=== PATIENT | male | born 1950 | race Caucasian/White ===

== ENCOUNTER 2016-08-02 14:53 | Inpatient (IN) | payer OTHER ==
[~2016-08-02] VITALS: Ht 177.8 cm; Wt 84.8 kg
--- NOTE | 2016-08-02 16:26 | ED GI/GU/ABDOMINAL COMPLAINT ---
See Addendum History of Present Illness General Chief Complaint: General Adult Stated Complaint: PT SIB DR FOR C DIFF Source: patient Exam Limitations: no limitations Vital Signs & Intake/Output Vital Signs & Intake/Output Vital Signs Date Time Temp Pulse Resp B/P B/P Pulse O2 O2 Flow FiO2 Mean Ox Delivery Rate 08/02 1504 99.6 80 16 123/72 97 Room Air Allergies Coded Allergies: No Known Allergies (08/02/16) Triage Note: 65 Y/O [facility]. PT STATES HE WAS THERE TO BE ADMITTED AND HE TOLD THEM HE HAS BEEN HAVING DIARRHEA EVERY DAY FOR 6 WEEKS SO THEY ARE CONCERNED HE MAY HAVE C.DIFF. PT STATES THEY ALSO TOLD HIM HIS SKIN LOOKS A LITTLE YELLOW. PT DENIES HISTORY OF SAME. SCLERA JAUNDICED. PT DENIES FEELING ANY WITHDRAWAL SYMPTOMS AT PRESENT. USED "COCAINE AND PILLS" YESTERDAY. STATES [facility] IS WILLING TO TAKE HIM BACK AFTER MEDICAL EVAL/CLEARANCE. Triage Nurses Notes Reviewed? yes HPI: This is a 65-year-old male with past medical history significant for diabetes, hypertension, hyperlipidemia, who was sent in by [facility] (sp?) a drug and alcohol rehabilitation program, for further evaluation of his diarrhea, particularly for c.diff. Upon further questioning, patient states that his diarrhea has been present for the past 5-6 weeks. He states that initially he had 3-4 loose, light-colored bowel movements a day. He then started taking 2 tabs of Imodium daily with a resulting decrease in the frequency of bowel movements down to 2/ day. Denies any melena, or bright red blood per rectum. Denies any pain upon defecation. Though he has been increasing his food intake, he notes at least 10 -15 lb weight loss. He denies any new medications added to his regimen, other than a tremporally distant increase in his diabetic medications which include glyburide and metformin. In addition, patient states he has noted an orange colored urine for the same duration as he has noted the light-colored diarrhea. He denies any hematuria, itching, burning, frequency or urgency. He denies abdominal pain, nausea or vomiting. He denies any fever or night sweats. He endorses worsening dry skin and pruritis. Patient has social history notable for significant drug and alcohol use. He is unwilling to quantify amount of alcohol consumption; however, he does tell me that he has been to outpatient and inpatient rehabilitation several times. He mentioned consumption of "pint or so" of hard liquor. His last drink was yesterday afternoon and it consisted of several beers. He also uses cocaine, last use 1.5g yesterday. He also intermittently uses Suboxone and Xanax. Denies any exposure to needles or IV drugs. (YURI JONES MD) Past History Travel History Traveled to [place] past 21 day No Medical History Any Pertinent Medical History? see below for history Neurological: NONE EENT: NONE Cardiovascular: NONE Respiratory: NONE Gastrointestinal: NONE Hepatic: NONE Renal: NONE Musculoskeletal: NONE Psychiatric: NONE Endocrine: diabetes Blood Disorders: NONE Cancer(s): NONE REPRINT SORTER/Reproductive: NONE Surgical History Surgical History: non-contributory Psychosocial History What is your primary language Frisian Tobacco Use: Current Daily Use Daily Tobacco Use Amount/Type: => 5 Cigarettes daily Illicit Drug Use: cocaine Family History Hx Contributory? No (YURI JONES MD) Psychosocial History ETOH Use: alcoholic (CORIN LYONS MD) Review of Systems Review of Systems Constitutional: Reports: malaise. Denies: chills, fever. EENTM: Denies: blurred vision, visual changes, ear pain, epistaxis, nasal pain, throat pain. Respiratory: Denies: cough, short of breath, sputum production. Cardiovascular: Denies: chest pain, palpitations. GI: Reports: diarrhea, distention, changes in stool. Denies: abdominal pain, constipation, bowel incontinence, melena, nausea, bloody stool, vomiting. Genitourinary: Reports: see HPI. Musculoskeletal: Denies: back pain, joint pain, muscle pain. Skin: Reports: dryness, jaundice. (YURI JONES MD) Review of Systems Neurological/Psychological: Reports: no symptoms. Hematologic/Endocrine: Reports: no symptoms. Immunologic/Allergic: Reports: no symptoms. All Other Systems: Reviewed and Negative (CORIN LYONS MD) Physical Exam Physical Exam General Appearance: no apparent distress, alert, awake Head: normal appearance Eyes: Bilateral: PERRL, EOMI, normal inspection, other (Jaundiced eyes). Ears, Nose, Throat, Mouth: hearing grossly normal Neck: normal inspection, supple, full range of motion Respiratory: normal breath sounds, chest non-tender, no respiratory distress, quiet respiration, lungs clear Cardiovascular: regular rate/rhythm Gastrointestinal: soft, non-tender, No rebound or guarding. Could no appreciate any hepatomegaly. No fluid wave appreciated. Core Measures ACS in differential dx? No Severe Sepsis Present: No Septic Shock Present: No (KAREN FERNANDEZ,YURI) Physical Exam Back: normal inspection, normal range of motion Extremities: normal range of motion Neurologic/Psych: no motor/sensory deficits, awake, alert, oriented x 3, normal mood/affect Skin: ICTERIC (SERENA FERNANDEZ,CORIN Steen) Progress Differential Diagnosis: biliary colic, cholecystitis, hepatitis, pancreatitis, cirrhosis, pancreatic cancer Plan of Care: Orders Procedure Date/time Status Admit to inpatient 08/02 1848 Active Add-on Test (ER Only) 08/02 1836 Active Add-on Test (ER Only) 08/02 1821 Active Add-on Test (ER Only) 08/02 1805 Active US-LIMITED ABDOMEN 08/02 1745 Active EKG 08/02 1718 Active CULTURE,URINE 08/02 1649 Active URINE DRUGS OF ABUSE 08/02 1649 Complete URINALYSIS 08/02 1649 Complete ACETOMINOPHEN 08/02 1646 Active PARTIAL THROMBOPLASTIN TIME 08/02 1646 Active PROTHROMBIN TIME 08/02 1646 Active HIV (Reflex to HIVCQ) 08/02 1646 Active HEPATITIS PANEL 08/02 1646 Active GAMMA GLUTAMYL TRANSFERASE 08/02 1646 Active ETHANOL 08/02 1646 Active CULTURE,STOOL 08/02 1553 Active C.DIFFICILE 08/02 1553 Active LIPASE 08/02 1553 Active DIRECT BILIRUBIN 08/02 1553 Active COMPREHENSIVE METABOLIC PANEL 08/02 1553 Active CBC WITHOUT DIFFERENTIAL 08/02 1553 Complete AMYLASE 08/02 1553 Active Current Medications Sig/Darby Start time Last Medication Dose Stop Time Status Admin Sodium Chloride 1,000 ML BOLUS ONE 08/02 1700 AC (Normal Saline 0.9%) 08/02 1859 Laboratory Tests 08/02/16 1806: Urine Opiates Screen < 100.00, Methadone Screen < 40, Barbiturate Screen < 60, Ur Phencyclidine Scrn < 6.00, Amphetamines Screen < 100, U Benzodiazepines Scrn < 85, Urine Cocaine Screen > 1000 H, Urine Cannabis Screen < 5.00, Urinalysis LIGHT H, Urine Color STRAW, Urine Clarity HAZY H, Urine pH 6.0, Ur Specific Parnell 1.020, Urine Protein TRACE H, Urine Ketones NEG, Urine Nitrite NEG, Urine Bilirubin NEG@ICTO, Urine Urobilinogen 0.2, Ur Leukocyte Esterase NEG, Ur Microscopic SEDIMENT EXAMINED, Urine WBC RARE, Ur Epithelial Cells FEW, Urine Hemoglobin NEG, Urine Glucose >=1000 H 08/02/16 1736: Hepatitis A IgM Ab Cancelled, Hep Bs Antigen Cancelled, Hep B Core IgM Ab Conf Cancelled, Hepatitis C Antibody Cancelled 08/02/16 1709: APTT Cancelled 08/02/16 1705: HIV 1&2 Ab Western Blot Cancelled 08/02/16 1656: Serum Alcohol Cancelled 08/02/16 1650: Ammonia Cancelled 08/02/16 1646: Anion Gap 10, Estimated GFR > 60, BUN/Creatinine Ratio 32.2 H, Glucose 302 H, Calcium 9.3, Total Bilirubin 9.8 H, Direct Bilirubin 8.3 H, GGT Pending, AST 306 H, ALT 531 H, Alkaline Phosphatase 1058 H, Total Protein 6.6, Albumin 3.9 , Globulin 2.7, Albumin/Globulin Ratio 1.4, Amylase 78, Lipase 260, PT Pending, INR Pending, APTT Pending, CBC w Diff NO MAN DIFF REQ, RBC 3.72 L, MCV 87.9, MCH 30.1, RDW 16.1 H, MPV 11.1 H, PUBS MCHC 34.2, Hepatitis A IgM Ab Pending, Hep Bs Antigen Pending, Hep B Core IgM Ab Conf Pending, Hepatitis C Antibody Pending, HIV 1&2 Ab Western Blot Pending, Acetaminophen < 10.0 L, Serum Alcohol < 10.0 Microbiology 08/02 1809 STOOL: Clostridium difficile Toxin A & B - RECD 08/02 1809 STOOL: Stool Culture - RECD 08/02 1805 URINE ROUT: Urine Culture - RECD Comments: 5:30: Patient noted to have significant lab abnormalities including T bili of 9.8 and a D bili of 8.3. Alkaline phosphatase of 1058. 6:00 PM- spoke with Dr. Kimball regarding recommendations for patient. He stated that this physician for further workup of patient depended on the ultrasound and the coags. If patient was coagulopathic or obstructed then immediate intervention would likely be necessary. Currenlty pending coags and US. Recieved call from lab that they required lab add ons. Cancelled labs and changed them to add on. (YURI JONES MD) Initial ED EKG: NSR, nonspecific ST T wave chg Prior EKG: unchanged (SERENA FERNANDEZ,CORIN Steen) Departure Departure Disposition: STILL A PATIENT Condition: Stable Referrals: JONAS FERNANDEZ,KENNEY Michel (PCP/Family) Departure Forms: Customer Survey General Discharge Information (YURI JONES MD) Departure Clinical Impression Primary Impression: Liver failure Secondary Impressions: Hyperbilirubinemia, Jaundice Admission Note Spoke With: ROZ COOPER MD Documentation of Exam: Documentation of any treatments & extenuating circumstances including Concerns Regarding Discharge (functional status, medication knowledge or non-compliance, living conditions, etc.) that warrant an admission rather than observation: [ Admission with GI consultation. Follow-up on C-DIFF results. Once patient is medically clear he would like to be transferred [facility] . Resident Co-Sign Statement Statement: ED Attending supervision documentation- [X] I saw and evaluated the patient. I have also reviewed all the pertinent lab results and diagnostic results. I agree with the findings and the plan of care as documented in the Resident's documentation. [X] I have reviewed the ED Record and agree with the Resident's documentation. [] Additions or exceptions (if any) to the Resident's note and plan are summarized below: [I have personally seen and examined this patient. However the above note and agree with what has been written. Patient went to a rehabilitation facility for treatment for alcohol and drug dependency. All their they noticed that he was having diarrhea and he had icteric skin. Patient was sent to the hospital for evaluation. Patient states that he has been having diarrhea for the past 6 weeks and it gets better when he takes Imodium. Patient denies any abdominal pain. There is no foul over to the school. Patient states he has not taken antibiotics within the past 5 months. Patient also states that he noticed that his urine began to turn orange a few weeks ago. Patient has very elevated LFTs and hyperbilirubinemia. Patient will require admission for GI consultation. Once he is medically stable he will go back to the rehabilitation facility.] (SERENA FERNANDEZ,CORIN Steen)
[2016-08-02 17:13] LABS: HEMATOCRIT 32.7 % (42-52); MEAN CORPUSCULAR HGB 30.1 PG (27.0-31.0); MEAN CORPUSCULAR HGB CONC 34.2 G/DL (33.0-37.0); MEAN CORPUSCULAR VOLUME 87.9 FL (80.0-94.0); MEAN PLATELET VOLUME 11.1 FL (7.4-10.4); PLATELET COUNT 219 /CUMM (130-400); RBC DISTRIBUTION WIDTH 16.1 % (11.5-14.5); RED BLOOD CELL CT 3.72 /CUMM (4.70-6.10); WHITE BLOOD CELL COUNT 5.4 /CUMM (4.8-10.8)
[2016-08-02 18:29] LABS: PT 10.4 SEC (9.4-12.5); PTT 51 SEC (25-37)
--- NOTE | 2016-08-02 19:41 | History & Physical ---
CASANDRAYAOJITENDRA 08/02/161940: General Information and HPI MD Statement: I have seen and personally examined JOSEPH JOYA and documented this H&P. The patient is a 65 year old M who presented with a patient stated chief complaint of [diarrhea]. Source of Information: patient, old records Exam Limitations: no limitations History of Present Illness: This is a 65-year-old male with past medical history significant for diabetes, hypertension, hyperlipidemia, who was sent in by [facility], a drug and alcohol rehabilitation program, for further evaluation of his diarrhea and jaundice. Patient highlights recent Hx of 5-6 weeks of loose and frequent nima-colored, bowel movements per day. Additionally, he notes noted an orange colored urine for the same duration as he has noted diarrhea.Patient also complains of intense generalized pruritis and worsening of his skin dryness at the time. patient also had 10-15 lb unintentional weight loss, tenesm and feeling of incomplete emptying of his bowel and skin ulce/lesions. In further Q patient mentioned decreased in his sex drive and performance but denies any concerning growing of his breast. He denies any new medications added to his regimen, melena, or bright red blood per rectum, tremor,and hit/cold intolerance, hair loss, hematuria, itching, burning, frequency or urgency. He denies abdominal pain, nausea or vomiting. He denies any fever or night sweats, and lymphadenopathy. Patient has social history notable for significant drug and alcohol use for so many years. He was admitted to rehab for alcohol numerous times and had one hospital admission related to alcohol/ drugs in the distant past (no ICU admission). His last drink was yesterday (one bear), but on average he drinkd 1/ 2 pint of vodka. Patient snort coccaine regularly (last time was two days ago), he never smoked coccaine, or used any IV drugs. Allergies/Medications Allergies: Coded Allergies: No Known Allergies (08/02/16) Home Med list Alprazolam 0.5 MG TABLET 1 TAB PO BIDP PRN ANXIETY (Reported) Glimepiride 1 MG TABLET 1 TAB PO BID DIABETES (Reported) Lisinopril 10 MG TABLET 1 TAB PO DAILY HIGH BLOOD PRESSURE (Reported) Metformin HCl 1,000 MG TABLET 1 TAB PO BID DIABETES (Reported) Simvastatin (Simvastatin*) 40 MG TABLET 1 TAB PO QPM HIGH CHOLESTROL ( Reported) Compliance With Home Meds: GOOD Past History Travel History Traveled to [place] past 21 day No Medical History Neurological: NONE EENT: NONE Cardiovascular: hypertension Respiratory: NONE Gastrointestinal: NONE Hepatic: NONE Renal: NONE Musculoskeletal: NONE Psychiatric: NONE Endocrine: diabetes Blood Disorders: NONE Cancer(s): NONE 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 Ambulation: independent IADLs Independent: shopping, housework, finances, food prep, telephone, transportation , medication admin. Review of Systems Review of Systems Constitutional: Reports: see HPI. EENTM: Reports: see HPI. Cardiovascular: Reports: see HPI. Respiratory: Reports: see HPI. GI: Reports: see HPI, diarrhea, changes in stool. Denies: abdominal pain, bloating, constipation, distention, bowel incontinence, melena, nausea, bloody stool, vomiting, steatorrhea. Genitourinary: Reports: no symptoms. Musculoskeletal: Reports: no symptoms. Skin: Reports: no symptoms. Neurological/Psychological: Reports: see HPI. Denies: anxiety, ataxia, cognitive dysfunction, confusion, depressed, dementia, emotional problems, headache, numbness, paresthesia, pre- existing deficit, petit mal seizures, tingling, tremors, tonic-clonic seizures, unable to move lower ext, unable to move upper ext, weakness, other. Exam & Diagnostic Data Last 24 Hrs of Vital Signs/I&O Vital Signs Date Time Temp Pulse Resp B/P B/P Pulse O2 O2 Flow FiO2 Mean Ox Delivery Rate 08/024 96 Room Air 08/02 1955 98.0 71 18 107/60 96 Room Air 08/02 1504 99.6 80 16 123/72 97 Room Air Intake & Output 08/02 1600 08/02 0800 08/02 0000 Intake Total Output Total Balance Patient 187 lb Weight Weight Reported by Patient Measurement Method Physical Exam General Appearance Alert, Oriented X3, Cooperative, No Acute Distress Skin jaundice; trunk and pulms and face Skin Temp/Moisture Exam: Warm/Dry Sepsis Skin Exam (color): Jaundiced HEENT PERRLA, Mucous Membr. moist/pink, Sclrea: jaundice Neck No JVD Lymphatic Axillary nl, Cervical nl Cardiovascular Normal S1, Normal S2, No Murmurs Lungs Clear to Auscultation Abdomen Soft, No Tenderness, No Hepatospenomegaly, obese, soft, no hepatosplenomegaly , no spider angioma, retractible abdominal hernia Neurological Normal Speech, Strength at 5/5 X4 Ext, Normal Tone, no astrixis Extremities No Clubbing, No Cyanosis, No Edema, Normal Pulses, No Tenderness/ Swelling, jaundice Vascular Normal Pulses, Pulses Symmetrical Reproductive (MALE) Normal male genitalia Last 24 Hrs of Labs/Medardo: Laboratory Tests 08/02/16 1806: Urine Opiates Screen < 100.00, Methadone Screen < 40, Barbiturate Screen < 60, Ur Phencyclidine Scrn < 6.00, Amphetamines Screen < 100, U Benzodiazepines Scrn < 85, Urine Cocaine Screen > 1000 H, Urine Cannabis Screen < 5.00, Urinalysis LIGHT H, Urine Color STRAW, Urine Clarity HAZY H, Urine pH 6.0, Ur Specific [place] 1.020, Urine Protein TRACE H, Urine Ketones NEG, Urine Nitrite NEG, Urine Bilirubin NEG@ICTO, Urine Urobilinogen 0.2, Ur Leukocyte Esterase NEG, Ur Microscopic SEDIMENT EXAMINED, Urine WBC RARE, Ur Epithelial Cells FEW, Urine Hemoglobin NEG, Urine Glucose >=1000 H 08/02/16 1736: Hepatitis A IgM Ab Cancelled, Hep Bs Antigen Cancelled, Hep B Core IgM Ab Conf Cancelled, Hepatitis C Antibody Cancelled 08/02/16 1709: APTT Cancelled 08/02/16 1705: HIV 1&2 Ab Western Blot Cancelled 08/02/16 1656: Serum Alcohol Cancelled 08/02/16 1650: Ammonia Cancelled 08/02/16 1646: Anion Gap 10, Estimated GFR > 60, BUN/Creatinine Ratio 32.2 H, Glucose 302 H, Calcium 9.3, Total Bilirubin 9.8 H, Direct Bilirubin 8.3 H, GGT 3560 H, AST 306 H, ALT 531 H, Alkaline Phosphatase 1058 H, Total Protein 6.6, Albumin 3.9 , Globulin 2.7, Albumin/Globulin Ratio 1.4, Amylase 78, Lipase 260, PT 10.4, INR 0.99, APTT 51 H, CBC w Diff NO MAN DIFF REQ, RBC 3.72 L, MCV 87.9, MCH 30.1, RDW 16.1 H, MPV 11.1 H, PUBS MCHC 34.2, Hepatitis A IgM Ab Pending, Hep Bs Antigen Pending, Hep B Core IgM Ab Conf Pending, Hepatitis C Antibody Pending, HIV 1&2 Ab Western Blot NONREACTIVE, Acetaminophen < 10.0 L, Serum Alcohol < 10.0 Microbiology 08/02 1809 STOOL: Clostridium difficile Toxin A & B - RECD 08/02 1809 STOOL: Stool Culture - RECD 08/02 1805 URINE ROUT: Urine Culture - RECD Diagnostic Data EKG Results Normal sinus rate and rhythm, 80 beats per minutes, normal axis, normal intervals, poor R-wave progression in precordial leads Assessment/Plan Assessment: 65-year-old gentleman was admitted for jaundice with a cholestatic pattern. CBC: WBC 5.4, platelets 219 hemoglobin 11.2, hematocrit 32.7, MCV 87.9 PT 10.4, INR 0.99, PTT 51, sodium 135, potassium 4.6, BUN 29, creatinine 0.9, glucose 302, total bilirubin 9.8 direct bilirubin 8.3 GGT 3560, AST 306 ALT 531m alkaline phosphatase 1058, normal amylase and lipase. Urine toxicology positive for cocaine. Abdominal ultrasound showed normal liver size and contour and echogenicity, no focal lesions or intrahepatic biliary duct dilation. Gallbladder is distended of overweight layering sludge no gallbladder wall thickening or tenderness during scanning no discrete gallstone. No evidence of acute cholecystitis no biliary ductal dilation. List of active problems #1 jaundice with cholestatic pattern elevated alkaline phosphatase and LFT. The list of differential diagnosis autoimmune hepatitis (type I and type II) chronic viral hepatitis. This patient has abnormal LFTs and prominence elevation of alkaline phosphatase in addition to GGT(pointed towards biliary system). He has a constellation of symptoms of jaundice, fatigue and weight loss and loose bowel movements. In the setting is prudent to include primary sclerosing cholangitis, and primary biliary cirrhosis (consider his loose bowel movement and weight loss which may indiacte fat mal absorption) in the list of differential diagnosis. Another DDx fo this patient pancreatic cancer. * Admit to general medical floor * NPO over night * GI consult * Check hepatic panel * Check total IgG and IgG4 and IgM, check KWASI, anti-smooth muscle antibody (ASMA ), anti-liver kidney microsomal-1 Abx (anti-LKM-1) for autoimmune hepatitis * Endoscopic retrograde cholangiopancreatography or cholangiographically to rule out PSC and PBC. * thyroid function pannel * anti-Ro/SSA and/or anti-La/SSB antibodies to R/O Sjogren * Repeat BEP and CBCs and lipid profile in the a.m., and lipid panel #2 diabetes * Stop metformin and glimepiride * Insulin aspart sliding scale and fingerstick 3 times a day before meals * Diabetes diets #3 hypertension continue home medication #4 alcohol dependence * Started patient on thiamine, multivitamin, folic acid * ativan 1 mg Q8h * By mouth Ativan triggered by CIWA score * Psych and social consult in the a.m. #5 cocaine abuse-use Ativan for agitation patient is currently stable DVT prophylaxis heparin 5000 units every 8 hours subcutaneous Low-dose morphine every 4 for mild/moderate pain High-dose morphine for severe pain Use Tylenol 650 mg for mild pain up to 1000 mg in 24h As Ranked By This Provider Problem List: 1. Hyperbilirubinemia 2. Jaundice Core Measures/Miscellaneous Acute Coronary Syndrome ACS Diagnosis: No Cerebrovascular Accident CVA/TIA Diagnosis: No Congestive Heart Failure CHF Diagnosis: No Venous Thromboembolism VTE Risk Factors: Acute medical illness No [facility] VTE prophylaxis d/t: No contraindications No VTE Pharm Prophylaxis d/t: No contraindications VTE Diagnosis: No VTE Type: NONE VTE Confirmed by (Test): NONE Severe Sepsis Severe Sepsis Present: No Septic Shock Septic Shock Present: No Miscellaneous Documentation Attending Case Discussed With: ROZ COOPER MD Primary Care Physician: KENNEY MCDANIEL MD 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 Level of Patient Care: Telemetry Consults Needed: Consulting Specialty: Cardiology Resident Review Statement Resident Statement: examined this patient, discussed with international marketing intern, agreed with international marketing intern, discussed with family, reviewed EMR data (avail), discussed with nursing , discussed with case mgmt, reviewed images, amended to note ROZ COOPER 08/03/16 0308: Attending Review Statement Attending Statement Attending MD Statement: examined this patient, discuss w/resident/PA/EMBEDDED HARDWARE ENGINEER, agreed w/resident/PA/EMBEDDED HARDWARE ENGINEER, discussed with family, reviewed EMR data (avail), reviewed images, amended to note Attending Assessment/Plan: CC: Sent from rehabilitation for medical clearance PMH: DM, HTN, HLD, polysubstance abuse Patient went inpatient rehabilitation for alcohol and cocaine abuse and detox. While evaluating for admission patient was noted to have diarrhea since 6 weeks, it was considered that he may have GI infection so he was sent to ER for further evaluation. Also they mentioned about patient being a little yellow. Patient mentions that he has been having diarrhea since 6 weeks, 5-6 semisolid bowel movement every day, difficult to flush, ? mucoid, no aggravating factors. It improved with OTC Imodium, since last 2 weeks patient has been consistently taking Imodium and his bowel movements are reduced to 2-3 every day. Patient denies any associated abdominal pain or cramping, no recent travels, no sick contacts, no antibiotic use, no vomiting or nausea. Previously patient had some history of constipation for which he used apple cider vinegar. Denies any history of recurrent abdominal pain or pancreatitis, denies any blood in the stool. Patient appears obviously icteric, but does not mention since how long that is going on in fact unaware of that symptom. Family mentions the urine is dark today upon sample collection but patient does not complain about it. No fever, chills, night sweats. He lost remarkable weight since March. Patient drinks a pint or so [place], every day along with a couple of beers, does not exactly quantify. He snorts cocaine, and denied IV drug use. Recently he went to check for hepatitis after looking at some advertisement regarding his age group should be checked for hep C. Does not follow-up with the primary care physician regularly. Vitals: Afebrile, pulse, RRR, blood pressure, O2 saturation in acceptable range. On exam: A O 3, cooperative, no acute distress, indifferent affect, icteric, neck supple, JVD normal, no lymphadenopathy, mucosa dry, no focal neurological deficit, no asterixis, no dependent edema, no spider angiomata or inflammation, yellowing of skin CVS: S1-S2, RRR. RS: Clear to auscultate bilaterally. Abdomen: Soft, NT, ND, bowel sounds present., Negative Low's sign, negative CVA tenderness. Labs: WBC 5.4, hemoglobin 11.2, platelets 219, BUN 29, creatinine 0.9, sodium 135, anion gap 10, glucose 302, total bilirubin 9.8, direct bilirubin 8.3, AST 306, ALT 531, alkaline phosphatase 1058, GGT 3560, albumin 3.9, lipase 260, INR 0.99 U tox negative for acetaminophen, positive for cocaine, negative for alcohol UA positive for trace protein glucose more than 1000 USG abdomen: The gallbladder is distended with layering bile. No evidence of acute cholecystitis. No biliary ductal dilatation. A and P Patient presents with chronic diarrhea more than 6 weeks duration, symptomatically improved with Imodium from 5-6 to 2-3 per day, difficult to flush stools, significant weight loss. Along with this patient has significant hyperbilirubinemia, mostly direct with elevated AST ALT. Even though patient has significant alcohol history his ALT is more than AST. Alkaline phosphatase and GGT markedly elevated. Albumin, platelet, INR, MCV in normal range. This all points towards biliary pathology plus or minus pancreatic insufficiency versus malabsorption. Patient does not have any acute abdominal pain, Low's sign is negative, no fever or leukocytosis ruling out cholangitis or cholecystitis ultrasound confirms the findings but still choledocholithiasis is a possibility, also need to rule out any underlying masses, structural abnormality, other connective tissue disorders. Patient would benefit from MRCP. + Chronic diarrhea + Cholestatic jaundice + Transaminitis + Elevated alkaline phosphatase + Significant polysubstance abuse: alcohol and cocaine + History of hypertension, DM, HLD - Admit to general medicine - Nothing by mouth after midnight - Follow-up C. difficile, HIV, hepatitis panel tests - Repeat CBC, CMP, INR, TSH in a.m. - GI consult in a.m. - Sliding scale insulin for diabetes - Continue home doses of lisinopril and statin - Scheduled and when necessary Ativan according to CIWA score - Replace folic acid, thiamine - Gentle hydration - Psych consult in a.m. - Repeat EKG and troponin in a.m. - DVT prophylaxis with heparin - Adequate pain control
--- NOTE | 2016-08-02 19:58 | ULTRASOUND REPORT ---
EXAMINATION: US ABDOMEN LIMITED CLINICAL INFORMATION: Jaundice. COMPARISON: None TECHNIQUE: Real-time imaging of the right upper quadrant abdominal viscera. FINDINGS: PANCREAS: Visualization of the pancreas is obscured by bowel gas. LIVER: Normal. The liver demonstrates normal size, contour and echogenicity. No focal lesion or intrahepatic biliary duct dilatation. GALLBLADDER: The gallbladder is distended and filled with layering sludge. No gallbladder wall thickening or tenderness during scanning. No discrete gallstone. COMMON BILE DUCT: Normal in caliber measuring 0.5 cm in diameter. RIGHT KIDNEY: Normal. No hydronephrosis. No renal calculi or focal parenchymal lesions. The kidney measures 10.8 cm in maximum dimension. FREE FLUID: None. IMPRESSION: The gallbladder is distended with layering bile. No evidence of acute cholecystitis. No biliary ductal dilatation. Visualization of the pancreas is obscured by bowel gas.
[2016-08-02] MEDS ORDERED: LISINOPRIL10 M1 PO (21:34)
[2016-08-02] MEDS ORDERED: SIMVASTATIN40 M1 PO (21:34)
[2016-08-02] MEDS ORDERED: METFORMIN HCL1000 M1 PO (21:34)
[2016-08-02] MEDS ORDERED: GLIMEPIRIDE1 M1 PO (21:35)
[2016-08-02] MEDS ORDERED: ALPRAZOLAM0.5 M4 PO (21:36)
[2016-08-02] MEDS ORDERED: SUBOXONE 2 MG-1 EACH SL (21:38)
[2016-08-02 22:44] VITALS: BP 138/102
--- NOTE | 2016-08-03 03:10 | Admission Certification ---
Admission Certification Certification Statement - As attending physician, I certify that at the time of - admission, based on clinical presentation, severity of - symptoms, need for further diagnostic testing and - therapeutic interventions, and risk of adverse outcomes - without in-hospital treatment, in my clinical assessment, - this patient requires an acute hospital stay for a minimum - of two nights or longer. I have also considered psychsocial - factors such as support system, advanced age, financial - issues, cognitive issues, and failed out-patient treatments, - past re-admission history, safety of patient, and lack of - compliance as applicable. Specific rationale supporting this admission is: Diarrhea, cholestatic jaundice
--- NOTE | 2016-08-03 07:05 | PN- Housestaff ---
HAILEE FERNANDEZ,THOMAS 08/03/16 0704: Subjective Follow-up For: hyperbilirubinemia Subjective: When initially seen today, pt was lethargic, and was falling asleep while I was talking to him, he did just received ativan. Ativan scheduled was discontinued as his ciwa was 0, and last drink was sunday (1 beer) When we saw him about 2 hours later, he was alert and awake. I called GI to see him, he is still NPO pending decision to do ERCP. Psych and SW have been consulted as well. WE will obtain CT abd and pelvis to rule out mass given weight loss, anemia. We will obtain colonoscopy report from 2014. 130 PM - ammonia level 55, c diff positive. will start metronidazole 500 q8. Review of Systems Constitutional: Reports: see HPI. Objective Last 24 Hrs of Vital Signs/I&O Vital Signs Date Time Temp Pulse Resp B/P B/P Pulse O2 O2 Flow FiO2 Mean Ox Delivery Rate 08/03 0926 119/62 08/03 0731 98.2 71 18 140/66 97 Room Air 08/02 2244 98.0 74 18 138/102 95 Room Air 08/02 2207 97.9 70 16 126/63 98 Room Air 08/02 2124 96 Room Air 08/02 1955 98.0 71 18 107/60 96 Room Air 08/02 1504 99.6 80 16 123/72 97 Room Air Intake & Output 08/03 1600 08/03 0800 08/03 0000 Intake Total 1300 1125 Output Total Balance 1300 1125 Intake, IV 1000 1125 Intake, Oral 300 Patient 84.822 kg Weight Physical Exam General Appearance: Alert, Oriented X3, Cooperative, No Acute Distress Skin: jaundiced Cardiovascular: Regular Rate, Normal S1, Normal S2, No Murmurs Lungs: Clear to Auscultation, Normal Air Movement Abdomen: Normal Bowel Sounds, Soft, No Tenderness Neurological: Normal Speech Extremities: No Edema Current Medications: Current Medications Sig/Darby Start time Last Medication Dose Route Stop Time Status Admin Acetaminophen 650 MG Q4P PRN 08/02 2245 CAN PO Acetaminophen 650 MG Q6P PRN 08/02 2245 AC PO Atorvastatin Calcium 20 MG 1700 08/03 1700 CAN PO Folic Acid 1 MG DAILY 08/03 1000 AC 08/03 PO 08/05 1001 0925 Heparin Sodium 5,000 UNIT Q8 08/03 1400 AC (Porcine) SC Insulin Aspart 0 TIDAC 08/03 0800 DC SC Insulin Human Regular 0 Q6 08/03 0830 AC 08/03 SC 1255 Lisinopril 10 MG DAILY 08/03 1000 AC 08/03 PO 0926 Lorazepam 1 MG Q2P PRN 08/02 2345 AC IV Lorazepam 1 MG Q8 08/02 2336 DC 08/03 PO 0546 Metronidazole 500 MG Q8 08/03 1400 AC PO Morphine Sulfate 2 MG Q4P PRN 08/02 2245 AC IV Multivitamins 1 TAB DAILY 08/03 1000 AC 08/03 PO 0925 Oxycodone HCl 5 MG Q6P PRN 08/02 2245 AC PO Sodium Chloride 1,000 ML Q8H 08/03 0500 AC 08/03 IV 0546 Sodium Chloride 1,000 ML .Q8H 08/02 2045 DC 08/02 IV 2100 Sodium Chloride 1,000 ML BOLUS ONE 08/02 1700 DC 08/02 IV 08/02 1859 1830 Thiamine HCl 100 MG DAILY 08/03 1000 AC 08/03 PO 08/05 1001 0925 Last 24 Hrs of Lab/Medardo Results Last 24 Hrs of Labs/Mics: Laboratory Tests 08/03/16 1145: Ammonia 55 H 08/03/16 0640: Anion Gap 9, Estimated GFR > 60, BUN/Creatinine Ratio 23.8, Iron 132, Total Bilirubin 8.9 H, Direct Bilirubin 7.4 H, AST 361 H, ALT 518 H, Alkaline Phosphatase 1056 H, Troponin I < 0.01, Total Protein 5.8 L, Albumin 3.3 L, Vitamin B12 > 1000 H, Folate 15.2, CBC w Diff MAN DIFF ORDERED, RBC 3.58 L, MCV 88.6, MCH 30.1, RDW 15.7 H, MPV 11.7 H, Segmented Neutrophils 76 H, Lymphocytes 12 L, Monocytes 7, Eosinophils 5, Nucleated RBCs 1 H, Hypochromic- Microcytic 2+, Anisocytosis 2+, PUBS MCHC 34.0 08/03/16 0600: ANCA Pending 08/02/16 1806: Urine Opiates Screen < 100.00, Methadone Screen < 40, Barbiturate Screen < 60, Ur Phencyclidine Scrn < 6.00, Amphetamines Screen < 100, U Benzodiazepines Scrn < 85, Urine Cocaine Screen > 1000 H, Urine Cannabis Screen < 5.00, Urinalysis LIGHT H, Urine Color STRAW, Urine Clarity HAZY H, Urine pH 6.0, Ur Specific Cornelius 1.020, Urine Protein TRACE H, Urine Ketones NEG, Urine Nitrite NEG, Urine Bilirubin NEG@ICTO, Urine Urobilinogen 0.2, Ur Leukocyte Esterase NEG, Ur Microscopic SEDIMENT EXAMINED, Urine WBC RARE, Ur Epithelial Cells FEW, Urine Hemoglobin NEG, Urine Glucose >=1000 H 08/02/16 1736: Hepatitis A IgM Ab Cancelled, Hep Bs Antigen Cancelled, Hep B Core IgM Ab Conf Cancelled, Hepatitis C Antibody Cancelled 08/02/16 1709: APTT Cancelled 08/02/16 1705: HIV 1&2 Ab Western Blot Cancelled 08/02/16 1656: Serum Alcohol Cancelled 08/02/16 1650: Ammonia Cancelled 08/02/16 1646: Anion Gap 10, Estimated GFR > 60, BUN/Creatinine Ratio 32.2 H, Glucose 302 H, Calcium 9.3, Total Bilirubin 9.8 H, Direct Bilirubin 8.3 H, GGT 3560 H, AST 306 H, ALT 531 H, Alkaline Phosphatase 1058 H, Total Protein 6.6, Albumin 3.9 , Globulin 2.7, Albumin/Globulin Ratio 1.4, Amylase 78, Lipase 260, TSH 1.040, PT 10.4, INR 0.99, APTT 51 H, CBC w Diff NO MAN DIFF REQ, RBC 3.72 L, MCV 87.9 , MCH 30.1, RDW 16.1 H, MPV 11.1 H, PUBS MCHC 34.2, Hepatitis A IgM Ab NONREACTIVE, Hep Bs Antigen NONREACTIVE, Hep B Core IgM Ab Conf NONREACTIVE, Hepatitis C Antibody NONREACTIVE, HIV 1&2 Ab Western Blot NONREACTIVE, Acetaminophen < 10.0 L, Serum Alcohol < 10.0 08/02/16 1553: KWASI Titer ND, Anti-Nuclear Antibody NEG 1:40 IFA ASSAY Microbiology 08/03 1020 STOOL: Clostridium difficile Toxin A & B - COMP CLOSTRIDIUM DIFFICILE 08/02 1809 STOOL: Clostridium difficile Toxin A & B - RES CLOSTRIDIUM DIFFICILE 08/02 1809 STOOL: Stool Culture - RES 08/02 1805 URINE ROUT: Urine Culture - RES Assessment/Plan Assessment: 65-year-old male with past medical history significant for diabetes, hypertension, hyperlipidemia, alcohol and cocain abuse, who was sent in by [facility], a drug and alcohol rehabilitation program, for further evaluation of his diarrhea (found to be c diff), tenesmus, jaundice (t bili 9.8, direct bili 8.3), nima colored stool, orange colored urine, weight loss (10 lbs in 5 months) , anemia with elevated RDW. # C diff diarrhea * Metronidazole 500 mg q8 started 08/03/16 # Obstructive jaundice, alcoholic hepatitis - On admission AST 306, ALT 531, alk phos 1058, GGT 3560 - T bili 9.8, direct bili 8.3 - Negative hepatitis panel, HIV, KWASI - serum tylenol < 10 - Serum alcohol < 10 - INR 0.99 - Ammonia 55 * Follow up ANCA * GI consulted for possible ERCP, pt NPO, on 75ml/hr NS * Follow up CT abdomen and pelvis to r/o mass * Requesting recs from colonoscopy 2014 * Hold statin # Alcohol abuse, cocaine abuse - urine cocaine > 1000 * Discharge to [facility] when medically stable * Appreciate psych and SW input * Consider propanolol for cocaine withdrawal if agitated * MV, thiamine, folic acid * Ativan PRN IV # Normocytic anemia with elevated RDW - H/H: 11.2/32.7 - Vit B 12 > 1000, folate 15.2,iron 132 - RDW 16.1H # Hypertension * Continue lisinopril # DM * Accucheck and NPO novolin, would change to novolog tidac when eating Diet: NPO, if able to eat, would order CC3 DVT prophylaxis heparin 5000 units every 8 hours subcutaneous Low-dose morphine every 4 for mild/moderate pain High-dose morphine for severe pain Use Tylenol 650 mg for mild pain up to 1000 mg in 24h FULL CODE Problem List: 1. Hyperbilirubinemia Pain Ratin Pain Location: none Pain Goal: Remain pain free Pain Plan: mild pp Tomorrow's Labs & Rationales: lft direct bili for hyperbilirubinemia cbc for anemia bep for electrolyte repletion if needed DVT/Prophylaxis: mechanical, pharmacological Consulting Request: Consulting Specialty: Cardiology GERALDO HART 08/03/16 1111: Attending MD Review Statement Attending Statement Attending MD Statement: examined this patient, discuss w/resident/PA/GAMBLING DEALER, agreed w/resident/PA/GAMBLING DEALER, discussed with family, reviewed EMR data (avail), discussed with nursing, discussed with case mgmt, reviewed images, amended to note Attending Assessment/Plan: ASSESSMENT 1. Iron defeciency anemia 2. Diarrhea and weight loss 3. Jaundice with elevated ggt and alphos 4. alcohol abuse 5. distended gall bladder with layering of bile. 6. Elevated LFTs. PLAN obtain CT abd/pelvis and GI consult. diarrhea improving add questran. low prob of c diff. alcohol rehab as o/p and discharge gi/dvt prophyalxis full code plan of care d/wed patient and family
[2016-08-03 07:31] VITALS: BP 140/66
[2016-08-03 08:31] LABS: HEMATOCRIT 31.7 % (42-52); MEAN CORPUSCULAR HGB 30.1 PG (27.0-31.0); MEAN CORPUSCULAR VOLUME 88.6 FL (80.0-94.0); MEAN PLATELET VOLUME 11.7 FL (7.4-10.4); PLATELET COUNT 181 /CUMM (130-400); RBC DISTRIBUTION WIDTH 15.7 % (11.5-14.5); RED BLOOD CELL CT 3.58 /CUMM (4.70-6.10); WHITE BLOOD CELL COUNT 4.5 /CUMM (4.8-10.8)
--- NOTE | 2016-08-03 08:55 | Incdntl Nt Psy ---
Incidental Note Notation: Consult requested for alcohol and cocaine use. Ordered by Dr. Jiang & Dr. Capps Attending Dr. Honeycutt Assessment/Plan Assessment: Discuss case with resident. This patient has no psychiatric complaints and is currently awaiting return to [facility] medical clearance. Endorses recent cocaine and ETOH use. Plan: 1. Continue CIWA protocol and medicate appropriately. 2. Consider propranolol for symptoms of cocaine withdrawal. 3. Consider social work consult for this substance abuse patient. 4. Please reconsult psychiatry if there are any acute mental health concerns. Thank you we are signing off.
--- NOTE | 2016-08-03 14:42 | Cons- Gastroenterology ---
General Information and HPI Consulting Request Date of Consult: 08/03/16 Requested By: GERALDO HART MD Reason for Consult: Increased LFTs, jaundice, cholestasis Source of Information: patient Exam Limitations: no limitations History of Present Illness: Mr. Bajwa is a 65 year old male with a history of polypsubtance abuse who was sent to yesterday for evaluation of jaundice and diarrhea by a [facility]. The patient has been having diarrhea for the past 4-5 weeks. The patient reports that for the past 4-5 weeks he has been having loose stool which is light in color, but he hasn't noticed any blood. He also reports having dark urine during this time and he has noted some mild pruritus as well. He has been without any abdominal pain with eating, or signficant vomiting. He has not noticed himself to be yellow in the eyes, but notes that he was told he was jaundiced at the rehab facility. He has not had any high temperature spikes. He was last on abx this past winter, but he hasn't been on anything else since this time. He also has not had any recent foreign travel or have any sick contacts. He has admitted to heavy alcohol use drinking about a half a pint of vodka a day and he is also been using cocaine. On admission he was afebrile and hemodynamiclly stable, but he was noted to have increased LFTs with a bilirubin of around 9 and an alk phos around a 1000. He was kept NPO and he had stool studies sent that came back positive for c diff and flagyl has been ordered but he hasn't gotten it yet. Allergies/Medications Allergies: Coded Allergies: No Known Allergies (08/02/16) Home Med List: Alprazolam 0.5 MG TABLET 1 TAB PO BIDP PRN ANXIETY (Reported) Glimepiride 1 MG TABLET 1 TAB PO BID DIABETES (Reported) Lactobac Cmb #3/Fos/Pantethine (Probiotic & Acidophilus Cap) 300MM-250 CAPSULE 1 CAP PO BID PRN on antibiotics Lisinopril 10 MG TABLET 1 TAB PO DAILY HIGH BLOOD PRESSURE (Reported) Metformin HCl 1,000 MG TABLET 1 TAB PO BID DIABETES (Reported) Metronidazole (Flagyl) 250 MG TABLET 500 MG PO Q8 c diff diarrhea please take until 5/28/17 Simvastatin (Simvastatin*) 40 MG TABLET 1 TAB PO QPM HIGH CHOLESTROL ( Reported) Current Medications: Current Medications Sig/Darby Start time Last Medication Dose Route Stop Time Status Admin Acetaminophen 650 MG Q4P PRN 08/02 2245 CAN PO Acetaminophen 650 MG Q6P PRN 08/02 2245 AC PO Atorvastatin Calcium 20 MG 1700 08/03 1700 CAN PO Folic Acid 1 MG DAILY 08/03 1000 AC 08/03 PO 08/05 1001 0925 Heparin Sodium 5,000 UNIT Q8 08/03 1400 AC (Porcine) SC Insulin Aspart 0 TIDAC 08/03 0800 DC SC Insulin Human Regular 0 Q6 08/03 0830 AC 08/03 SC 1255 Lisinopril 10 MG DAILY 08/03 1000 AC 08/03 PO 0926 Lorazepam 1 MG Q2P PRN 08/02 2345 AC IV Lorazepam 1 MG Q8 08/02 2336 DC 08/03 PO 0546 Metronidazole 500 MG Q8 08/03 1400 AC PO Morphine Sulfate 2 MG Q4P PRN 08/02 2245 AC IV Multivitamins 1 TAB DAILY 08/03 1000 AC 08/03 PO 0925 Oxycodone HCl 5 MG Q6P PRN 08/02 2245 AC PO Sodium Chloride 1,000 ML Q8H 08/03 1445 UNVr IV Sodium Chloride 1,000 ML Q8H 08/03 0500 DC 08/03 IV 08/03 2059 0546 Sodium Chloride 1,000 ML .Q8H 08/02 2045 DC 08/02 IV 2100 Sodium Chloride 1,000 ML BOLUS ONE 08/02 1700 DC 08/02 IV 08/02 1859 1830 Thiamine HCl 100 MG DAILY 08/03 1000 AC 08/03 PO 08/05 1001 0925 Past History Travel History Traveled to [place] past 21 day No Medical History Neurological: NONE EENT: NONE Cardiovascular: hypertension Respiratory: NONE Gastrointestinal: NONE Hepatic: NONE Renal: NONE Musculoskeletal: NONE Psychiatric: NONE Endocrine: diabetes Blood Disorders: NONE Cancer(s): NONE ESTATE MANAGER/Reproductive: NONE Surgical History Surgical History: non-contributory Family History Relations & Conditions If Any: Relation not specified for: *No pertinent family history Psychosocial History Where Do You Live? Home Smoking Status: Never Smoked ETOH Use: alcoholic Illicit Drug Use: cocaine Functional Ability ADLs Independent: dressing, eating, toileting, bathing. Ambulation: independent IADLs Independent: shopping, housework, finances, food prep, telephone, transportation , medication admin. Review of Systems Review of Systems Constitutional: Reports: malaise. Denies: chills, diaphoresis, fever. EENTM: Denies: no symptoms. Cardiovascular: Denies: no symptoms. Respiratory: Denies: no symptoms. GI: Reports: see HPI. Genitourinary: Denies: no symptoms. Musculoskeletal: Denies: no symptoms. Skin: Denies: no symptoms. Neurological/Psychological: Denies: no symptoms. Hematologic/Endocrine: Denies: no symptoms. Immunologic/Allergic: Denies: no symptoms. All Other Systems: Reviewed and Negative Exam & Diagnostic Data Vital Signs and I&O Vital Signs Date Time Temp Pulse Resp B/P B/P Pulse O2 O2 Flow FiO2 Mean Ox Delivery Rate 08/03 0926 119/62 08/03 0731 98.2 71 18 140/66 97 Room Air 08/02 2244 98.0 74 18 138/102 95 Room Air 08/02 2207 97.9 70 16 126/63 98 Room Air 08/02 2124 96 Room Air 08/02 1955 98.0 71 18 107/60 96 Room Air Intake & Output 08/03 1600 08/03 0400 08/02 1600 08/02 0400 08/01 1600 08/01 0400 Intake Total 1300 1125 Output Total Balance 1300 1125 Intake, IV 1000 1125 Intake, Oral 300 Patient 187 lb 187 lb Weight Weight Reported by Patient Measurement Method Physical Exam General Appearance: well developed/nourished, no apparent distress, alert, comfortable Head: atraumatic, normal appearance Eyes: Bilateral: normal appearance. Ears, Nose, Throat: normal pharynx, normal ENT inspection Neck: normal inspection, supple, full range of motion Respiratory: normal breath sounds, chest non-tender Cardiovascular: regular rate/rhythm Gastrointestinal: normal bowel sounds, soft, non-tender Rectal: deferred Back: normal inspection, normal range of motion Extremities: normal inspection, normal capillary refill Neurologic/Psych: no motor/sensory deficits, awake, alert, oriented x 3 Results Pertinent Lab Results: Laboratory Tests 08/03 08/03 08/03 1145 0640 0600 Chemistry Sodium (137 - 145 mmol/L) 139 Potassium (3.5 - 5.1 mmol/L) 4.0 Chloride (98 - 107 mmol/L) 107 Carbon Dioxide (22 - 30 mmol/L) 23 Anion Gap (5 - 16) 9 BUN (9 - 20 mg/dL) 19 Creatinine (0.7 - 1.2 mg/dL) 0.8 Estimated GFR (>60 ml/min) > 60 BUN/Creatinine Ratio (7 - 25 %) 23.8 Iron (49 - 181 ug/dL) 132 TIBC (261 - 462 ug/dL) 274 Ferritin (17.9 - 464 ng/mL) 145.0 Total Bilirubin (0.2 - 1.3 mg/dL) 8.9 H Direct Bilirubin (< 0.4 mg/dL) 7.4 H AST (17 - 59 U/L) 361 H ALT (21 - 72 U/L) 518 H Alkaline Phosphatase (< 127 U/L) 1056 H Ammonia (9 - 30 umol/L) 55 H Troponin I (<0.11 ng/ml) < 0.01 Total Protein (6.3 - 8.2 g/dL) 5.8 L Albumin (3.5 - 5.0 g/dL) 3.3 L Vitamin B12 (239 - 931 pg/mL) > 1000 H Folate (2.76 - 20.0 ng/mL) 15.2 Hematology CBC w Diff MAN DIFF ORDERED WBC (4.8 - 10.8 /CUMM) 4.5 L RBC (4.70 - 6.10 /CUMM) 3.58 L Hgb (14.0 - 18.0 G/DL) 10.8 L Hct (42 - 52 %) 31.7 L MCV (80.0 - 94.0 FL) 88.6 MCH (27.0 - 31.0 PG) 30.1 RDW (11.5 - 14.5 %) 15.7 H Plt Count (130 - 400 /CUMM) 181 MPV (7.4 - 10.4 FL) 11.7 H Segmented Neutrophils (42.2 - 75.2 %) 76 H Lymphocytes (20.5 - 51.1 %) 12 L Monocytes (1.7 - 9.3 %) 7 Eosinophils (0 - 5.0 %) 5 Nucleated RBCs (0.0 - 0.0 /100WBC) 1 H Hypochromic-Microcytic 2+ Anisocytosis 2+ PUBS MCHC (33.0 - 37.0 G/DL) 34.0 Immunology ANCA Pending 08/02 08/02 0476 1736 Serology Hepatitis A IgM Ab Cancelled Hep Bs Antigen Cancelled Hep B Core IgM Ab Conf Cancelled Hepatitis C Antibody Cancelled Toxicology Urine Opiates Screen (>2000 NG/ML) < 100.00 Methadone Screen (>300 NG/ML) < 40 Barbiturate Screen (>200 NG/ML) < 60 Ur Phencyclidine Scrn (>25 NG/ML) < 6.00 Amphetamines Screen (>1000 NG/ML) < 100 U Benzodiazepines Scrn (>200 NG/ML) < 85 Urine Cocaine Screen (>300 NG/ML) > 1000 H Urine Cannabis Screen (>50 NG/ML) < 5.00 Urines Urinalysis LIGHT H Urine Color (YEL,AMB,STR) STRAW Urine Clarity (CLEAR) HAZY H Urine pH (5.0 - 8.0) 6.0 Ur Specific Staley (1.001 - 1.035) 1.020 Urine Protein (NEG,<30 MG/DL) TRACE H Urine Ketones (NEG) NEG Urine Nitrite (NEG) NEG Urine Bilirubin (NEG) NEG@ICTO Urine Urobilinogen (0.1 - 1.0 EU/dl) 0.2 Ur Leukocyte Esterase (NEG) NEG Ur Microscopic SEDIMENT EXAMINED Urine WBC (0 - 2 /HPF) RARE Ur Epithelial Cells (NONE,FEW) FEW Urine Hemoglobin (NEG) NEG Urine Glucose (N MG/DL) >=1000 H 08/02 08/02 08/02 08/02 1709 1705 1656 1650 Chemistry Ammonia Cancelled Coagulation APTT Cancelled Serology HIV 1&2 Ab Western Blot Cancelled Toxicology Serum Alcohol Cancelled 08/02 08/02 1646 1553 Chemistry Sodium (137 - 145 mmol/L) 135 L Potassium (3.5 - 5.1 mmol/L) 4.6 Chloride (98 - 107 mmol/L) 102 Carbon Dioxide (22 - 30 mmol/L) 23 Anion Gap (5 - 16) 10 BUN (9 - 20 mg/dL) 29 H Creatinine (0.7 - 1.2 mg/dL) 0.9 Estimated GFR (>60 ml/min) > 60 BUN/Creatinine Ratio (7 - 25 %) 32.2 H Glucose (65 - 99 mg/dL) 302 H Calcium (8.4 - 10.2 mg/dL) 9.3 Total Bilirubin (0.2 - 1.3 mg/dL) 9.8 H Direct Bilirubin (< 0.4 mg/dL) 8.3 H GGT (15 - 73 U/L) 3560 H AST (17 - 59 U/L) 306 H ALT (21 - 72 U/L) 531 H Alkaline Phosphatase (< 127 U/L) 1058 H Total Protein (6.3 - 8.2 g/dL) 6.6 Albumin (3.5 - 5.0 g/dL) 3.9 Globulin (1.9 - 4.2 gm/dL) 2.7 Albumin/Globulin Ratio (1.1 - 2.2 %) 1.4 Amylase (30 - 110 U/L) 78 Lipase (23 - 300 U/L) 260 TSH (0.270 - 4.200 uIU/mL) 1.040 Coagulation PT (9.4 - 12.5 SEC) 10.4 INR (0.90 - 1.17) 0.99 APTT (25 - 37 SEC) 51 H Hematology CBC w Diff NO MAN DIFF REQ WBC (4.8 - 10.8 /CUMM) 5.4 RBC (4.70 - 6.10 /CUMM) 3.72 L Hgb (14.0 - 18.0 G/DL) 11.2 L Hct (42 - 52 %) 32.7 L MCV (80.0 - 94.0 FL) 87.9 MCH (27.0 - 31.0 PG) 30.1 RDW (11.5 - 14.5 %) 16.1 H Plt Count (130 - 400 /CUMM) 219 MPV (7.4 - 10.4 FL) 11.1 H PUBS MCHC (33.0 - 37.0 G/DL) 34.2 Immunology KWASI Titer ND Anti-Nuclear Antibody (NEG,1:40) NEG 1:40 IFA ASSAY Serology Hepatitis A IgM Ab (NONREACTIVE) NONREACTIVE Hep Bs Antigen (NONREACTIVE) NONREACTIVE Hep B Core IgM Ab Conf (NONREACTIVE) NONREACTIVE Hepatitis C Antibody (NONREACTIVE) NONREACTIVE HIV 1&2 Ab Western Blot (NONREACTIVE) NONREACTIVE Toxicology Acetaminophen (10.0 - 30.0 ug/mL) < 10.0 L Serum Alcohol (<10 MG/DL) < 10.0 Imaging/Other Studies: EXAM TYPE: US - US-LIMITED ABDOMEN EXAMINATION: US ABDOMEN LIMITED CLINICAL INFORMATION: Jaundice. COMPARISON: None TECHNIQUE: Real-time imaging of the right upper quadrant abdominal viscera. FINDINGS: PANCREAS: Visualization of the pancreas is obscured by bowel gas. LIVER: Normal. The liver demonstrates normal size, contour and echogenicity. No focal lesion or intrahepatic biliary duct dilatation. GALLBLADDER: The gallbladder is distended and filled with layering sludge. No gallbladder wall thickening or tenderness during scanning. No discrete gallstone. COMMON BILE DUCT: Normal in caliber measuring 0.5 cm in diameter. RIGHT KIDNEY: Normal. No hydronephrosis. No renal calculi or focal parenchymal lesions. The kidney measures 10.8 cm in maximum dimension. FREE FLUID: None. IMPRESSION: The gallbladder is distended with layering bile. No evidence of acute cholecystitis. No biliary ductal dilatation. Visualization of the pancreas is obscured by bowel gas. EXAM TYPE: CAT - CT ABD & PELVIS W IV CONTRAST EXAMINATION: CT ABDOMEN AND PELVIS WITH CONTRAST CLINICAL INFORMATION: Obstructive jaundice. Colon cancer versus pancreatic cancer COMPARISON: Abdominal ultrasound dated 08/02/2016 TECHNIQUE: Multidetector volumetric imaging was performed of the abdomen and pelvis before and after the IV administration of 98 mL of Optiray 320 intravenous contrast. Sagittal and coronal reformatted images were obtained on the technologist's workstation. DLP: 825.86 mGy-cm FINDINGS: LUNG BASES: The visualized lung bases are unremarkable. LIVER, GALLBLADDER, AND BILIARY TREE: Tiny punctate calcifications superior right hepatic lobe (series 6 image 8 compatible with prior granulomatous disease. Subtle enhancing foci also noted in the superior segment 7/8 right hepatic lobe (series 6 image 1, image 11) measuring approximately 0.4 cm each. Mildly distended gallbladder with tiny gallstone in the dependent portion. (Series 5 image 24) Intrahepatic biliary ductal dilatation. Common hepatic duct is dilated. Bile duct is difficult to assess at the level of the pancreatic head. PANCREAS: Fullness of the pancreatic head with subtle low-attenuation. Evaluation of the pancreas on the early contrast enhancement is very limited due to beam hardening and motion degradation. There is subtle low-attenuation suspected in the region of the pancreatic head (series 2 image 25). No gross pancreatic ductal dilatation.. SPLEEN: Unremarkable. Soft tissue nodule noted posterior to the upper pole of the left kidney may represent a small lymph node or splenule (series 5 image 14) ADRENAL GLANDS: Unremarkable. KIDNEYS AND URETERS: No gross abnormality on the delayed contrast-enhanced CT scanner. Earlier contrast enhanced images are degraded. BLADDER: Unremarkable. GASTROINTESTINAL TRACT: Colonic diverticulosis. No evidence of acute diverticulitis. No acute bowel pathology. ABDOMINAL WALL: Tiny fat-containing umbilical hernia. LYMPH NODES: Small epigastric lymph nodes. No gross lymphadenopathy. VASCULAR: Atherosclerotic disease with intimal calcification of aorta and aortic branches. Vascular calcification splenic artery. PELVIC VISCERA: Prostatic enlargement. Prostate measures 5.4 cm in transverse diameter. Prostatic calcifications. OSSEOUS STRUCTURES: There is grade 1 anterolisthesis L5-S1 bilateral L5 pars interarticularis defect likely representing a chronic change. Moderate facet arthropathy L4-L5 and L5-S1 levels. IMPRESSION: 1. There is fullness of the pancreatic head with subtle internal low-attenuation. Early contrast enhanced images are degraded by motion artifacts limiting their evaluation. Given the presence of biliary ductal dilatation, further assessment with endoscopic ultrasound or contrast-enhanced pancreatic MRI recommended. 2. Tiny enhancing hepatic foci superior right hepatic lobe. These too can be further assessed with dynamic contrast-enhanced MRI. Calcified granulomas noted in the liver. 3. Mildly distended gallbladder with tiny gallstone. Intrahepatic and proximal biliary ductal dilatation. 4. Colonic diverticulosis. No evidence of acute diverticulitis. Evaluation of the bowel wall is limited due to incomplete distention. No gross abnormal wall thickness. Assessment/Plan Assessment/Recommendations: Assessment: Mr. Bajwa is a 65-year-old male with a history of cocaine and alcohol abuse who was admitted with painless jaundice which appears to be secondary to an obstruction at the level of the pancreatic head which is obviously concerning for an underlying pancreatic malignancy. He is without any right upper quadrant pain and he is afebrile so biliary decompression is not urgent. He should have further imaging with an MRI and he will likely ultimately require an EUS for staging and to determine resectability and an ERCP for biliary decompression, but all of this can likely be done as an outpatient. His diarrhea appears to be secondary to c diff and unrelated to his jaundice and this will hopefully improve with oral flagyl. Recommendations: 1. Follow daily LFTs 2. Follow up MRCP/MRI with pancreatic mass protocol 3. Notify GI for signs of cholangitis (ie. RUQ pain, fevers, hypotension etc). 4. Treat c diff with PO flagyl to complete a 10 day course 5. Can treat pruritus with prn questran, but this should be given separate from the flagyl so that it doesn't interfere with absorption. 6. If he remins without signs of cholangitis consideration should be given to discharge him home on oral flagyl to pursue an EUS +/- ERCP vs surgical resection as an outpatient. I will continue to follow this patient and make further recommendations based on his clinical course and results of further imaging and repeat blood work. Copies To: JONAS FERNANDEZ,KENNEY Michel Consult Acknowledgment - Thank you for your consult request.
--- NOTE | 2016-08-03 14:59 | CT SCAN REPORT ---
EXAMINATION: CT ABDOMEN AND PELVIS WITH CONTRAST CLINICAL INFORMATION: Obstructive jaundice. Colon cancer versus pancreatic cancer COMPARISON: Abdominal ultrasound dated 08/02/2016 TECHNIQUE: Multidetector volumetric imaging was performed of the abdomen and pelvis before and after the IV administration of 98 mL of Optiray 320 intravenous contrast. Sagittal and coronal reformatted images were obtained on the technologist's workstation. DLP: 825.86 mGy-cm FINDINGS: LUNG BASES: The visualized lung bases are unremarkable. LIVER, GALLBLADDER, AND BILIARY TREE: Tiny punctate calcifications superior right hepatic lobe (series 6 image 8 compatible with prior granulomatous disease. Subtle enhancing foci also noted in the superior segment 7/8 right hepatic lobe (series 6 image 1, image 11) measuring approximately 0.4 cm each. Mildly distended gallbladder with tiny gallstone in the dependent portion. (Series 5 image 24) Intrahepatic biliary ductal dilatation. Common hepatic duct is dilated. Bile duct is difficult to assess at the level of the pancreatic head. PANCREAS: Fullness of the pancreatic head with subtle low-attenuation. Evaluation of the pancreas on the early contrast enhancement is very limited due to beam hardening and motion degradation. There is subtle low-attenuation suspected in the region of the pancreatic head (series 2 image 25). No gross pancreatic ductal dilatation.. SPLEEN: Unremarkable. Soft tissue nodule noted posterior to the upper pole of the left kidney may represent a small lymph node or splenule (series 5 image 14) ADRENAL GLANDS: Unremarkable. KIDNEYS AND URETERS: No gross abnormality on the delayed contrast-enhanced CT scanner. Earlier contrast enhanced images are degraded. BLADDER: Unremarkable. GASTROINTESTINAL TRACT: Colonic diverticulosis. No evidence of acute diverticulitis. No acute bowel pathology. ABDOMINAL WALL: Tiny fat-containing umbilical hernia. LYMPH NODES: Small epigastric lymph nodes. No gross lymphadenopathy. VASCULAR: Atherosclerotic disease with intimal calcification of aorta and aortic branches. Vascular calcification splenic artery. PELVIC VISCERA: Prostatic enlargement. Prostate measures 5.4 cm in transverse diameter. Prostatic calcifications. OSSEOUS STRUCTURES: There is grade 1 anterolisthesis L5-S1 bilateral L5 pars interarticularis defect likely representing a chronic change. Moderate facet arthropathy L4-L5 and L5-S1 levels. IMPRESSION: 1. There is fullness of the pancreatic head with subtle internal low-attenuation. Early contrast enhanced images are degraded by motion artifacts limiting their evaluation. Given the presence of biliary ductal dilatation, further assessment with endoscopic ultrasound or contrast-enhanced pancreatic MRI recommended. 2. Tiny enhancing hepatic foci superior right hepatic lobe. These too can be further assessed with dynamic contrast-enhanced MRI. Calcified granulomas noted in the liver. 3. Mildly distended gallbladder with tiny gallstone. Intrahepatic and proximal biliary ductal dilatation. 4. Colonic diverticulosis. No evidence of acute diverticulitis. Evaluation of the bowel wall is limited due to incomplete distention. No gross abnormal wall thickness.
[2016-08-03 15:29] VITALS: BP 102/52
--- NOTE | 2016-08-03 21:26 | Event Note ---
Event Note Event Note: The patient's fingerstick was 320. He did eat dinner. He was given 6 units of NovoLog.
[2016-08-03 22:42] VITALS: BP 122/60
[2016-08-04 05:46] VITALS: BP 126/70
[2016-08-04 07:49] LABS: HEMATOCRIT 31.2 % (42-52); MEAN CORPUSCULAR HGB 30.1 PG (27.0-31.0); MEAN CORPUSCULAR HGB CONC 34.2 G/DL (33.0-37.0); MEAN CORPUSCULAR VOLUME 88.3 FL (80.0-94.0); MEAN PLATELET VOLUME 11.5 FL (7.4-10.4); PLATELET COUNT 183 /CUMM (130-400); RBC DISTRIBUTION WIDTH 16.3 % (11.5-14.5); RED BLOOD CELL CT 3.53 /CUMM (4.70-6.10); WHITE BLOOD CELL COUNT 5.5 /CUMM (4.8-10.8)
--- NOTE | 2016-08-04 08:05 | PN- Housestaff ---
HAILEE FERNANDEZ,THOMAS 08/04/16 0804: Subjective Follow-up For: painless jaundice c diff Subjective: awaiting mrcp today. pt claustorphobic, will give 1x xanax. ID consult was obtained because pt's is very concerned about bringing patient home because they have a 1-year-old baby at home. pt had 4 epiisodes of nima colored loose stools yesterday, c diff came back positive, not sure if it is a real infection or colonization, as ct showed no signs of colitis (no gross abnormal wall thickness), metronidazole po was started. also pt would need to be counselled on disulfiram like reaction if patient goes home on metronidazole and continues to drink alcohol. we considered po vancomycin but the severity of his c dif (if indeed an infection) does not warrant the use of vancomycin. blood sugar 187,180,254,320,206,259,326. he vomited after receiving iv contrast yesterday, k noted to be low at 3.3 today , will replete. pt reports feeling run down today. no further nausea or vomiting. Review of Systems Constitutional: Reports: see HPI. Objective Last 24 Hrs of Vital Signs/I&O Vital Signs Date Time Temp Pulse Resp B/P B/P Pulse O2 O2 Flow FiO2 Mean Ox Delivery Rate 08/04 0546 98.0 67 20 126/70 95 Room Air 08/03 2242 98.5 82 18 122/60 96 Room Air 08/03 1529 98.1 75 20 102/52 95 Room Air Intake & Output 08/04 1600 08/04 0800 08/04 0000 Intake Total 1000 740 Output Total Balance 1000 740 Intake, IV 1000 500 Intake, Oral 240 Number 0 1 Bowel Movements Physical Exam General Appearance: Alert, Oriented X3, Cooperative, No Acute Distress HEENT: Atraumatic Cardiovascular: Regular Rate, Normal S1, Normal S2, No Murmurs Lungs: Clear to Auscultation, Normal Air Movement Abdomen: Normal Bowel Sounds, Soft, No Tenderness Neurological: Normal Speech Extremities: No Edema Current Medications: Current Medications Sig/Darby Start time Last Medication Dose Route Stop Time Status Admin Acetaminophen 650 MG Q6P PRN 08/02 2245 AC PO Alprazolam 0.25 MG ONCE ONE 08/04 1115 DC PO 08/04 1116 Alprazolam 0.25 MG ONCE ONE 08/03 2200 DC 08/03 PO 08/03 2201 2233 Folic Acid 1 MG DAILY 08/03 1000 AC 08/04 PO 08/05 1001 0949 Heparin Sodium 5,000 UNIT Q8 08/03 1400 AC 08/04 (Porcine) SC 0534 Insulin Aspart 0 TIDAC 08/04 1200 AC SC Insulin Aspart 6 UNITS ONCE ONE 08/03 2130 DC 08/03 SC 08/03 2131 2131 Insulin Aspart 0 TIDAC 08/03 1515 IA SC 08/03 1900 Insulin Human Regular 8 UNITS .STK-MED ONE 08/04 0007 DC IV 08/04 0008 Insulin Human Regular 0 Q6 08/03 2359 DC 08/04 SC 0550 Insulin Human Regular 0 Q6 08/03 0830 DC 08/03 SC 1255 Lactobacillus 1 CAP BID 08/04 1122 AC Acidophilus PO Lisinopril 10 MG DAILY 08/03 1000 AC 08/04 PO 0949 Lorazepam 1 MG Q2P PRN 08/02 2345 AC IV Metronidazole 500 MG Q8 08/03 1400 AC 08/04 PO 0533 Morphine Sulfate 2 MG Q4P PRN 08/02 2245 AC IV Multivitamins 1 TAB DAILY 08/03 1000 AC 08/04 PO 0949 Oxycodone HCl 5 MG Q6P PRN 08/02 2245 AC PO Potassium Chloride 40 MEQ ONCE ONE 08/04 1130 DC PO 08/04 1131 Sodium Chloride 1,000 ML Q8H 08/03 1445 AC 08/04 IV 0753 Sodium Chloride 1,000 ML Q8H 08/03 0500 DC 08/03 IV 08/03 2059 0546 Thiamine HCl 100 MG DAILY 08/03 1000 08/04 PO 08/05 1001 0949 Last 24 Hrs of Lab/Medardo Results Last 24 Hrs of Labs/Mics: Laboratory Tests 08/04/16 0626: Anion Gap 10, Estimated GFR > 60, BUN/Creatinine Ratio 24.3, Total Bilirubin 8.0 H, Direct Bilirubin 6.7 H, AST 339 H, ALT 495 H, Alkaline Phosphatase 1054 H, Total Protein 5.5 L, Albumin 3.0 L, CBC w Diff MAN DIFF ORDERED, RBC 3.53 L, MCV 88.3, MCH 30.1, RDW 16.3 H, MPV 11.5 H, Segmented Neutrophils 83 H, Lymphocytes 5 L, Monocytes 9, Eosinophils 3, Platelet Estimate ADEQUATE, Hypochromic-Microcytic 1+, Anisocytosis 1+, PUBS MCHC 34.2 08/03/16 1145: Ammonia 55 H Assessment/Plan Assessment: 65-year-old male with past medical history significant for diabetes, hypertension, hyperlipidemia, alcohol and cocain abuse, who was sent in by [facility], a drug and alcohol rehabilitation program, for further evaluation of his diarrhea (found to be c diff), tenesmus, jaundice (t bili 9.8, direct bili 8.3), nima colored stool, orange colored urine, weight loss (10 lbs in 5 months), anemia with elevated RDW. # Diarrhea (loose stool), c dif + , colonization vs infection - CT showed no signs of colitis - Less bowel movement since metronidazole started * Metronidazole 500 mg q8 started 08/03/16, continue for 10 days. 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 po vancomycin not indicated at this point * Appreciate ID input * Can continue to monitor in the hospital until his stool is formed # Painless obstructive jaundice, pancreatic mass? - On admission AST 306, ALT 531, alk phos 1058, GGT 3560 - T bili 9.8, direct bili 8.3 - Negative hepatitis panel, HIV, KWASI - serum tylenol < 10 - Serum alcohol < 10 - INR 0.99 - Ammonia 55 - There is fullness of the pancreatic head with subtle internal low-attenuation. Early contrast enhanced images are degraded by motion artifacts limiting their evaluation. Given the presence of biliary ductal dilatation, further assessment with endoscopic ultrasound or contrast-enhanced pancreatic MRI recommended. Tiny enhancing hepatic foci superior right hepatic lobe. These too can be further assessed with dynamic contrast-enhanced MRI. - Recs from colonoscopy 2014 showed diverticulosis and benign polyps. No malignancy. - FH of cancer , smoking hx * Follow up [facility] * Watch out for cholangitis - fever , hypotension, ruq pain, inform GI immediately, transfer for ERCP * Patient could not tolerate pancreatic MRI, MRCP due to clausterphobia * GI consulted, Dr. Wright , pt needs EUS, ERCP, can be done as OP. Pt needs to call Dr Wright's office on 08/07/16, so that referral can be sent for EUS at [place]. Based on results of EUS, patient might not need ERCP (if mass is resectable, might go to surgery without ERCP). * Hold statin * Follow LFT and DB daily # Alcohol abuse, cocaine abuse - urine cocaine > 1000 * [facility] would not take him because he is c dif + * Appreciate psych and SW input * Consider propanolol for cocaine withdrawal if agitated * MV, thiamine, folic acid * Ativan PRN IV # Normocytic anemia with elevated RDW - H/H: 11.2/32.7 - Vit B 12 > 1000, folate 15.2,iron 132 - RDW 16.1H # Hypertension * Continue lisinopril # DM * Accucheck and novolog tidac Diet: CC3 DVT prophylaxis heparin 5000 units every 8 hours subcutaneous Low-dose morphine every 4 for mild/moderate pain High-dose morphine for severe pain Use Tylenol 650 mg for mild pain up to 1000 mg in 24h FULL CODE Problem List: 1. Hyperbilirubinemia 2. Jaundice Pain Ratin Pain Location: none Pain Goal: Remain pain free Pain Plan: mild pp Tomorrow's Labs & Rationales: bep lft direct bilirubin hyperbilirubinemia electrolyte abnormality DVT/Prophylaxis: mechanical, pharmacological Consulting Request: Consulting Specialty: Cardiology GERALDO HART 08/04/16 1107: Attending MD Review Statement Attending Statement Attending MD Statement: examined this patient, discuss w/resident/PA/DIRECTOR PRIVATE, agreed w/resident/PA/DIRECTOR PRIVATE, discussed with family, reviewed EMR data (avail), discussed with nursing, discussed with case mgmt, reviewed images, amended to note Attending Assessment/Plan: ASSESSMENT 1. Iron defeciency anemia 2. Diarrhea and weight loss 3. Jaundice with elevated ggt and alphos 4. alcohol abuse 5. distended gall bladder with layering of bile. 6. Elevated LFTs. PLAN CT abd/pelvis with fullness of pancreatic head, MRCP today. GI following diarrhea improving add questran. low prob of c diff. Consult ID LFTS stable, no evidence of cholangitis now. alcohol rehab as o/p, consult SW. gi/dvt prophyalxis full code plan of care d/wed patient and family
[2016-08-04] MEDS ORDERED: FLAGYL250 M1 PO (09:06)
--- NOTE | 2016-08-04 09:09 | Patient Discharge Instructions ---
Discharge Instructions General Discharge Information You were seen/treated for: C diff diarrhea Painless jaundice Pancreatic mass Special Instructions: - Please follow up with endoscopic ultrasound and ERCP to evaluate pancreatic mass further. Call Dr. Wright's office on 08/07/16. He will give you referral for the procedures. -Please follow up with community health director (stomach and liver specialist), Dr. Wright - Please complete 10 day course of antibiotics. Please take probiotics while you are on antibiotics. Be mindful that drinking alcohol with metronidazole will make you feel very sick (vomiting, headache). So please refrain from alcohol. Diet Continue normal diet: Yes Recommended Diet: Diabetic Activity Full Activity/No Limits: Yes Acute Coronary Syndrome Inclusion Criteria At DC or during hospital stay patient has or had the following: ACS DIAGNOSIS No Discharge Core Measures Meds if any: Prescribed or Continued at Discharge Meds if any: NOT Prescribed or Continued at Discharge Congestive Heart Failure Inclusion Criteria At DC or during hospital stay patient has or had the following: CHF DIAGNOSIS No Discharge Core Measures Meds if any: Prescribed or Continued at Discharge Meds if any: NOT Prescribed or Continued at Discharge Cerebrovascular accident Inclusion Criteria At DC or during hospital stay patient has or had the following: CVA/TIA Diagnosis No Discharge Core Measures Meds if any: Prescribed or Continued at Discharge Meds if any: NOT Prescribed or Continued at Discharge Venous thromboembolism Inclusion Criteria VTE Diagnosis No VTE Type NONE VTE Confirmed by (Test) NONE Discharge Core Measures - Per Current guidelines, there needs to be overlap - treatment for the first 5 days of Warfarin therapy. - If discharged on Warfarin prior to 5 days of - overlap therapy, the patient will need to be - assessed for post discharge needs including - *Post discharge parental anticoagulation - *Warfarin and/or parental anticoagulation education - *Follow up date to check INR post discharge At least 5 days overlap therapy as Inpatient No Meds if any: Prescribed or Continued at Discharge Note: Overlap Therapy is Warfarin and Anticoagulant Meds if any: NOT Prescribed or Continued at Discharge
[2016-08-04] MEDS ORDERED: PROBIOTIC & AC1 EACH PO (13:02)
[2016-08-04 14:24] VITALS: BP 126/60
--- NOTE | 2016-08-04 14:54 | Discharge Summary ---
Visit Information Visit Dates Admission Date: 08/02/16 Discharge Date: 08/04/16 Hospital Course Course Attending Physician: GERALDO HART MD Primary Care Physician: KENNEY MCDANIEL MD Hospital Course: 65-year-old male with past medical history significant for diabetes, hypertension, hyperlipidemia, alcohol and cocaine abuse, who was sent in by [facility], a drug and alcohol rehabilitation program, for further evaluation of his diarrhea (to evaluate if it is c diff). Patient highlights recent Hx of 5-6 weeks of loose and frequent nima-colored, bowel movements. On further questioning and evaluation, he also had tenesmus, jaundice (t bili 9.8, direct bili 8.3), orange colored urine, weight loss (10 lbs in 5 months), anemia with elevated RDW. On admission, his vitals were stable, and physical exam was normal apart from obvious jaundice. Patient was admitted to general medicine for evaluation of painless jaundice and diarrhea. Given painless jaundice, family history of cancer, smoking hx, weight loss, AST and ALT that are NOT consistent with alcoholic hepatitis, we were concerned for possible malignancy. CT scan of abdomen and pelvis was done, and showed pancreatic head fullness although the image was degraded by motion artifacts. His bilirubin came down on its own without intervention. He never had RUQ pain during this admission. Dr. Wright, GI, was consulted. We tried to evaluate the mass further with MRCP/MRI with pancreatic sequence, however patient was extremely clausterphobic and was not able to tolerate MRI. After discussion with Dr. Wright, we decided to send patient home as he is medically stable without signs and symptoms of acute cholangitis. Patient was given instruction to call Dr. Wright's office on Sunday, Aug 07 2016, to set up a referral for endoscopic ultrasound at [place]. Based on the results, he might not need to pursue ERCP if it turns out that the mass is resectable. Also informed patient and his to immediately seek medical attention if he develops fever, RUQ pain, or hypotension (dizziness, change in vision). His C diff was positive, however CT scan showed no signs of colitis (no abnormal wall thickness). Metronidazole 500 Q 8 was started, and patient reports less bowel movement since it was started. Dr. Wright recommended continuing metronidazole for total of 10 days course of antibiotics. I have informed patient and his of the disulfiram like reaction if patient takes metronidazole with alcohol. PO vancomycin not indicated at this time. His was concerned that he will not be accepted at [facility] due to his c diff positivity. However, given the current pancreatic findings, it is more urgent to get the workup done before sending patient to rehab facility. Allergies: Coded Allergies: No Known Allergies (08/02/16) Significant Procedures: EXAM TYPE: CAT - CT ABD & PELVIS W IV CONTRAST EXAMINATION: CT ABDOMEN AND PELVIS WITH CONTRAST CLINICAL INFORMATION: Obstructive jaundice. Colon cancer versus pancreatic cancer COMPARISON: Abdominal ultrasound dated 08/02/2016 TECHNIQUE: Multidetector volumetric imaging was performed of the abdomen and pelvis before and after the IV administration of 98 mL of Optiray 320 intravenous contrast. Sagittal and coronal reformatted images were obtained on the technologist's workstation. DLP: 825.86 mGy-cm FINDINGS: LUNG BASES: The visualized lung bases are unremarkable. LIVER, GALLBLADDER, AND BILIARY TREE: Tiny punctate calcifications superior right hepatic lobe (series 6 image 8 compatible with prior granulomatous disease. Subtle enhancing foci also noted in the superior segment 7/8 right hepatic lobe (series 6 image 1, image 11) measuring approximately 0.4 cm each. Mildly distended gallbladder with tiny gallstone in the dependent portion. (Series 5 image 24) Intrahepatic biliary ductal dilatation. Common hepatic duct is dilated. Bile duct is difficult to assess at the level of the pancreatic head. PANCREAS: Fullness of the pancreatic head with subtle low-attenuation. Evaluation of the pancreas on the early contrast enhancement is very limited due to beam hardening and motion degradation. There is subtle low-attenuation suspected in the region of the pancreatic head (series 2 image 25). No gross pancreatic ductal dilatation.. SPLEEN: Unremarkable. Soft tissue nodule noted posterior to the upper pole of the left kidney may represent a small lymph node or splenule (series 5 image 14) ADRENAL GLANDS: Unremarkable. KIDNEYS AND URETERS: No gross abnormality on the delayed contrast-enhanced CT scanner. Earlier contrast enhanced images are degraded. BLADDER: Unremarkable. GASTROINTESTINAL TRACT: Colonic diverticulosis. No evidence of acute diverticulitis. No acute bowel pathology. ABDOMINAL WALL: Tiny fat-containing umbilical hernia. LYMPH NODES: Small epigastric lymph nodes. No gross lymphadenopathy. VASCULAR: Atherosclerotic disease with intimal calcification of aorta and aortic branches. Vascular calcification splenic artery. PELVIC VISCERA: Prostatic enlargement. Prostate measures 5.4 cm in transverse diameter. Prostatic calcifications. OSSEOUS STRUCTURES: There is grade 1 anterolisthesis L5-S1 bilateral L5 pars interarticularis defect likely representing a chronic change. Moderate facet arthropathy L4-L5 and L5-S1 levels. IMPRESSION: 1. There is fullness of the pancreatic head with subtle internal low-attenuation. Early contrast enhanced images are degraded by motion artifacts limiting their evaluation. Given the presence of biliary ductal dilatation, further assessment with endoscopic ultrasound or contrast-enhanced pancreatic MRI recommended. 2. Tiny enhancing hepatic foci superior right hepatic lobe. These too can be further assessed with dynamic contrast-enhanced MRI. Calcified granulomas noted in the liver. 3. Mildly distended gallbladder with tiny gallstone. Intrahepatic and proximal biliary ductal dilatation. 4. Colonic diverticulosis. No evidence of acute diverticulitis. Evaluation of the bowel wall is limited due to incomplete distention. No gross abnormal wall thickness. EXAM TYPE: US - US-LIMITED ABDOMEN EXAMINATION: US ABDOMEN LIMITED CLINICAL INFORMATION: Jaundice. COMPARISON: None TECHNIQUE: Real-time imaging of the right upper quadrant abdominal viscera. FINDINGS: PANCREAS: Visualization of the pancreas is obscured by bowel gas. LIVER: Normal. The liver demonstrates normal size, contour and echogenicity. No focal lesion or intrahepatic biliary duct dilatation. GALLBLADDER: The gallbladder is distended and filled with layering sludge. No gallbladder wall thickening or tenderness during scanning. No discrete gallstone. COMMON BILE DUCT: Normal in caliber measuring 0.5 cm in diameter. RIGHT KIDNEY: Normal. No hydronephrosis. No renal calculi or focal parenchymal lesions. The kidney measures 10.8 cm in maximum dimension. FREE FLUID: None. IMPRESSION: The gallbladder is distended with layering bile. No evidence of acute cholecystitis. No biliary ductal dilatation. Visualization of the pancreas is obscured by bowel gas. Pertinent Lab Results: Laboratory Tests 08/04 08/03 0626 1145 Chemistry Sodium (137 - 145 mmol/L) 139 Potassium (3.5 - 5.1 mmol/L) 3.3 L Chloride (98 - 107 mmol/L) 108 H Carbon Dioxide (22 - 30 mmol/L) 21 L Anion Gap (5 - 16) 10 BUN (9 - 20 mg/dL) 17 Creatinine (0.7 - 1.2 mg/dL) 0.7 Estimated GFR (>60 ml/min) > 60 BUN/Creatinine Ratio (7 - 25 %) 24.3 Total Bilirubin (0.2 - 1.3 mg/dL) 8.0 H Direct Bilirubin (< 0.4 mg/dL) 6.7 H AST (17 - 59 U/L) 339 H ALT (21 - 72 U/L) 495 H Alkaline Phosphatase (< 127 U/L) 1054 H Ammonia (9 - 30 umol/L) 55 H Total Protein (6.3 - 8.2 g/dL) 5.5 L Albumin (3.5 - 5.0 g/dL) 3.0 L Hematology CBC w Diff MAN DIFF ORDERED WBC (4.8 - 10.8 /CUMM) 5.5 RBC (4.70 - 6.10 /CUMM) 3.53 L Hgb (14.0 - 18.0 G/DL) 10.6 L Hct (42 - 52 %) 31.2 L MCV (80.0 - 94.0 FL) 88.3 MCH (27.0 - 31.0 PG) 30.1 RDW (11.5 - 14.5 %) 16.3 H Plt Count (130 - 400 /CUMM) 183 MPV (7.4 - 10.4 FL) 11.5 H Segmented Neutrophils (42.2 - 75.2 %) 83 H Lymphocytes (20.5 - 51.1 %) 5 L Monocytes (1.7 - 9.3 %) 9 Eosinophils (0 - 5.0 %) 3 Platelet Estimate (ADEQUATE) ADEQUATE Hypochromic-Microcytic 1+ Anisocytosis 1+ PUBS MCHC (33.0 - 37.0 G/DL) 34.2 18 05/18 0640 0600 Chemistry Sodium (137 - 145 mmol/L) 139 Potassium (3.5 - 5.1 mmol/L) 4.0 Chloride (98 - 107 mmol/L) 107 Carbon Dioxide (22 - 30 mmol/L) 23 Anion Gap (5 - 16) 9 BUN (9 - 20 mg/dL) 19 Creatinine (0.7 - 1.2 mg/dL) 0.8 Estimated GFR (>60 ml/min) > 60 BUN/Creatinine Ratio (7 - 25 %) 23.8 Iron (49 - 181 ug/dL) 132 TIBC (261 - 462 ug/dL) 274 Ferritin (17.9 - 464 ng/mL) 145.0 Total Bilirubin (0.2 - 1.3 mg/dL) 8.9 H Direct Bilirubin (< 0.4 mg/dL) 7.4 H AST (17 - 59 U/L) 361 H ALT (21 - 72 U/L) 518 H Alkaline Phosphatase (< 127 U/L) 1056 H Troponin I (<0.11 ng/ml) < 0.01 Total Protein (6.3 - 8.2 g/dL) 5.8 L Albumin (3.5 - 5.0 g/dL) 3.3 L Vitamin B12 (239 - 931 pg/mL) > 1000 H Folate (2.76 - 20.0 ng/mL) 15.2 Hematology CBC w Diff MAN DIFF ORDERED WBC (4.8 - 10.8 /CUMM) 4.5 L RBC (4.70 - 6.10 /CUMM) 3.58 L Hgb (14.0 - 18.0 G/DL) 10.8 L Hct (42 - 52 %) 31.7 L MCV (80.0 - 94.0 FL) 88.6 MCH (27.0 - 31.0 PG) 30.1 RDW (11.5 - 14.5 %) 15.7 H Plt Count (130 - 400 /CUMM) 181 MPV (7.4 - 10.4 FL) 11.7 H Segmented Neutrophils (42.2 - 75.2 %) 76 H Lymphocytes (20.5 - 51.1 %) 12 L Monocytes (1.7 - 9.3 %) 7 Eosinophils (0 - 5.0 %) 5 Nucleated RBCs (0.0 - 0.0 /100WBC) 1 H Hypochromic-Microcytic 2+ Anisocytosis 2+ PUBS MCHC (33.0 - 37.0 G/DL) 34.0 Immunology ANCA Pending 08/02 08/02 0546 0466 Serology Hepatitis A IgM Ab Cancelled Hep Bs Antigen Cancelled Hep B Core IgM Ab Conf Cancelled Hepatitis C Antibody Cancelled Toxicology Urine Opiates Screen (>2000 NG/ML) < 100.00 Methadone Screen (>300 NG/ML) < 40 Barbiturate Screen (>200 NG/ML) < 60 Ur Phencyclidine Scrn (>25 NG/ML) < 6.00 Amphetamines Screen (>1000 NG/ML) < 100 U Benzodiazepines Scrn (>200 NG/ML) < 85 Urine Cocaine Screen (>300 NG/ML) > 1000 H Urine Cannabis Screen (>50 NG/ML) < 5.00 Urines Urinalysis LIGHT H Urine Color (YEL,AMB,STR) STRAW Urine Clarity (CLEAR) HAZY H Urine pH (5.0 - 8.0) 6.0 Ur Specific [place] (1.001 - 1.035) 1.020 Urine Protein (NEG,<30 MG/DL) TRACE H Urine Ketones (NEG) NEG Urine Nitrite (NEG) NEG Urine Bilirubin (NEG) NEG@ICTO Urine Urobilinogen (0.1 - 1.0 EU/dl) 0.2 Ur Leukocyte Esterase (NEG) NEG Ur Microscopic SEDIMENT EXAMINED Urine WBC (0 - 2 /HPF) RARE Ur Epithelial Cells (NONE,FEW) FEW Urine Hemoglobin (NEG) NEG Urine Glucose (N MG/DL) >=1000 H 08/02 08/02 08/02 08/02 1709 1705 1656 1650 Chemistry Ammonia Cancelled Coagulation APTT Cancelled Serology HIV 1&2 Ab Western Blot Cancelled Toxicology Serum Alcohol Cancelled 08/02 08/02 1646 1553 Chemistry Sodium (137 - 145 mmol/L) 135 L Potassium (3.5 - 5.1 mmol/L) 4.6 Chloride (98 - 107 mmol/L) 102 Carbon Dioxide (22 - 30 mmol/L) 23 Anion Gap (5 - 16) 10 BUN (9 - 20 mg/dL) 29 H Creatinine (0.7 - 1.2 mg/dL) 0.9 Estimated GFR (>60 ml/min) > 60 BUN/Creatinine Ratio (7 - 25 %) 32.2 H Glucose (65 - 99 mg/dL) 302 H Calcium (8.4 - 10.2 mg/dL) 9.3 Total Bilirubin (0.2 - 1.3 mg/dL) 9.8 H Direct Bilirubin (< 0.4 mg/dL) 8.3 H GGT (15 - 73 U/L) 3560 H AST (17 - 59 U/L) 306 H ALT (21 - 72 U/L) 531 H Alkaline Phosphatase (< 127 U/L) 1058 H Total Protein (6.3 - 8.2 g/dL) 6.6 Albumin (3.5 - 5.0 g/dL) 3.9 Globulin (1.9 - 4.2 gm/dL) 2.7 Albumin/Globulin Ratio (1.1 - 2.2 %) 1.4 Amylase (30 - 110 U/L) 78 Lipase (23 - 300 U/L) 260 TSH (0.270 - 4.200 uIU/mL) 1.040 Coagulation PT (9.4 - 12.5 SEC) 10.4 INR (0.90 - 1.17) 0.99 APTT (25 - 37 SEC) 51 H Hematology CBC w Diff NO MAN DIFF REQ WBC (4.8 - 10.8 /CUMM) 5.4 RBC (4.70 - 6.10 /CUMM) 3.72 L Hgb (14.0 - 18.0 G/DL) 11.2 L Hct (42 - 52 %) 32.7 L MCV (80.0 - 94.0 FL) 87.9 MCH (27.0 - 31.0 PG) 30.1 RDW (11.5 - 14.5 %) 16.1 H Plt Count (130 - 400 /CUMM) 219 MPV (7.4 - 10.4 FL) 11.1 H PUBS MCHC (33.0 - 37.0 G/DL) 34.2 Immunology KWASI Titer ND Anti-Nuclear Antibody (NEG,1:40) NEG 1:40 IFA ASSAY Serology Hepatitis A IgM Ab (NONREACTIVE) NONREACTIVE Hep Bs Antigen (NONREACTIVE) NONREACTIVE Hep B Core IgM Ab Conf (NONREACTIVE) NONREACTIVE Hepatitis C Antibody (NONREACTIVE) NONREACTIVE HIV 1&2 Ab Western Blot (NONREACTIVE) NONREACTIVE Toxicology Acetaminophen (10.0 - 30.0 ug/mL) < 10.0 L Serum Alcohol (<10 MG/DL) < 10.0 Disposition Summary Disposition Principal Diagnosis: Painless jaundice Additional Diagnosis: C dif diarrhea Discharge Disposition: home or self care Discharge Instructions General Discharge Information Code Status: Full Code Patient's Diet: Diabetic diet Patient's Activity: As tolerated Follow-Up Instructions/Appts: You were seen/treated for: C diff diarrhea Painless jaundice Pancreatic mass Special Instructions: - Please follow up with endoscopic ultrasound and ERCP to evaluate pancreatic mass further. Call Dr. Wright's office on 08/07/16. He will give you referral for the procedures. -Please follow up with stock trader (stomach and liver specialist), Dr. Wright - Please complete 10 day course of antibiotics. Please take probiotics while you are on antibiotics. Be mindful that drinking alcohol with metronidazole will make you feel very sick (vomiting, headache). So please refrain from alcohol. Medications at Discharge Discharge Medications: Continue taking these medications: Lisinopril (Lisinopril) 10 MG TABLET 1 Tablet ORAL DAILY Qty = 90 Metformin HCl (Metformin HCl) 1,000 MG TABLET 1 Tablet ORAL TWICE DAILY Qty = 60 Simvastatin (Simvastatin*) 40 MG TABLET 1 Tablet ORAL Every night Qty = 90 Glimepiride (Glimepiride) 1 MG TABLET 1 Tablet ORAL TWICE DAILY Qty = 180 Alprazolam (Alprazolam) 0.5 MG TABLET 1 Tablet ORAL 2 x Daily as needed as needed for ANXIETY Qty = 30 Start taking the following new medications: Metronidazole (Flagyl) 250 MG TABLET 500 Milligram ORAL EVERY 8 HOURS Days = 10 No Refills Instructions: please take until 08/13/16 Lactobac Cmb #3/Fos/Pantethine (Probiotic & Acidophilus Cap) 300MM-250 CAPSULE 1 Capsule ORAL TWICE DAILY as needed for on antibiotics Days = 10 No Refills Copies To: JONAS FERNANDEZ,JOSE BANERJEE MD MD Review Statement Documenting Attending: GERALDO HART MD
== END 2016-08-04 16:25 | DRG 372 ==
LOC: ERH 14:53 → 2NB 18:48 → ERHI 18:48 → ENRESERV 21:41 → 2NB 22:25
PROVIDERS: Physician Assistant Medical; Radiology Diagnostic Radiology; Student in an Organized Health Care Education/Training Program; ADMIT Internal Medicine
DX: A04.7 Enterocolitis due to Clostridium difficile (principal); R17 Unspecified jaundice; K70.10 Alcoholic hepatitis without ascites; I10 Essential (primary) hypertension; D50.9 Iron deficiency anemia, unspecified; F14.10 Cocaine abuse, uncomplicated; E11.9 Type 2 diabetes mellitus without complications; E78.5 Hyperlipidemia, unspecified; Z79.84 Long term (current) use of oral hypoglycemic drugs; F41.9 Anxiety disorder, unspecified; R19.09 Other intra-abdominal and pelvic swelling, mass and lump; F10.20 Alcohol dependence, uncomplicated
CPT/HCPCS: 2NBP; 86021; 74177; 80307; 81001; 82436; 87045; 87086; 87389; 93005; 93010; G0480; J1644; J1815; J3490